=== PATIENT | male | born 1995 | race Caucasian/White ===

== ENCOUNTER 2020-12-30 08:11 | Emergency (ER) | payer OTHER ==
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
== END 2020-12-30 10:58 | disposition home or self-care (01) ==
LOC: JP.ED 08:11
DX: S16.1XXA Strain of muscle, fascia and tendon at neck level, initial encounter (principal); S90.112A Contusion of left great toe without damage to nail, initial encounter; S20.212A Contusion of left front wall of thorax, initial encounter; V59.40XA Driver of pick-up truck or van injured in collision with unspecified motor vehicles in traffic accident, initial encounter
CPT/HCPCS: 71046; 71046-26; 72125; 72125-26; 73630-26-LT; 73630-LT; 99283; 99284-25